=== PATIENT | female | born 1985 | race African-American/Black ===

== ENCOUNTER 2016-12-17 11:53 | Inpatient (IN) | payer MEDICAID ==
[2016-12-20] MEDS ORDERED: PRENATAL VIT1 TAB PO (15:42)
[2016-12-20] MEDS ORDERED: MOTRIN-DPS800 MG PO (15:42)
[2016-12-20] MEDS ORDERED: NIPPLECREAM TP (15:42)
[2016-12-20] MEDS ORDERED: TYLENOL #3 DPS1 TAB PO (15:42)
== END 2016-12-19 13:15 | disposition home or self-care (01) | DRG 775 ==
DX: O99.824 Streptococcus B carrier state complicating childbirth (principal); O77.0 Labor and delivery complicated by meconium in amniotic fluid; Z3A.39 39 weeks gestation of pregnancy; Z37.0 Single live birth

== ENCOUNTER → 2017-01-27 | Outpatient (CLI) | payer MEDICAID ==
[~2017-01-27] MED LIST: MOTRIN-DPS800 MG PO; NIPPLECREAM TP; PRENATAL VIT1 TAB PO; TYLENOL #3 DPS1 TAB PO
== END | disposition home or self-care (01) ==
LOC: RAD.S 13:38
DX: E04.1 Nontoxic single thyroid nodule (principal)

== ENCOUNTER → 2017-02-18 | Outpatient (CLI) | payer MEDICAID | END | disposition home or self-care (01) | LOC: RAD.S 09:33 | PROC: 0G9H3ZX Drainage of Right Thyroid Gland Lobe, Percutaneous Approach, Diagnostic (ICD-10-PCS; principal; 2017-02-18) | PROC: 0GBH3ZX Excision of Right Thyroid Gland Lobe, Percutaneous Approach, Diagnostic (ICD-10-PCS; principal; 2017-02-18) | DX: E04.1 Nontoxic single thyroid nodule (principal) ==